=== PATIENT | male | born 1970 | race Caucasian/White ===

== ENCOUNTER 2020-12-04 11:27 | Emergency (ER) | payer OTHER ==
[2020-12-04] MEDS ORDERED: Proparacaine 0.5% Opth 15 ML BOT ONE (12:07)
[2020-12-04] MEDS ORDERED: Fluorescein Opthalmic Strip ONE ×2 (12:07→12:08)
== END 2020-12-04 13:10 | disposition home or self-care (01) ==
LOC: ERS 11:27
DX: H16.133 Photokeratitis, bilateral (principal)
CPT/HCPCS: 99283

== ENCOUNTER 2022-05-28 11:14 | Outpatient (CLI) | payer OTHER | END 2022-05-28 11:15 | disposition home or self-care (01) | LOC: BICRAD 11:14 | PROVIDERS: ATTEND Family Medicine | DX: M79.645 Pain in left finger(s) (principal) ==

== ENCOUNTER 2025-03-18 09:10 | Outpatient (CLI) | payer OTHER | END 2025-03-18 09:11 | disposition home or self-care (01) | LOC: CT 09:10 | PROVIDERS: ATTEND Otolaryngology Plastic Surgery within the Head & Neck | DX: R09.81 Nasal congestion (principal); J34.89 Other specified disorders of nose and nasal sinuses ==